=== PATIENT | female | born 1970 | race Caucasian/White ===

== ENCOUNTER 2019-12-17 | Emergency (ER) | payer SELFPAY ==
[2019-12-17] MEDS ORDERED: PROVERA5 MG PO (09:45)
[2019-12-17 10:22] LABS: IMMATURE GRANULOCYTES 0.4 % (0.0-5.0); MEAN CELL VOLUME 70.9 fL CALC (80.0-100.0); MEAN CORPUSCULAR HGB 18.1 pG CALC (26.0-32.0); MEAN CORPUSCULAR HGB CONC 25.5 g/L CALC (32.0-36.0); NEUT# 2.83 thou/uL (2.00-7.15); RED BLOOD COUNT 2.99 mill/uL (4.20-5.60); RED CELL DISTRI WIDTH 19.9 % (11.5-15.5)
[2019-12-17 10:26] LABS: URINE BILIRUBIN - DIPSTICK NEGATIVE (NEGATIVE); URINE BLOOD DIPSTICK MODERATE (NEGATIVE); URINE COLOR YELLOW; URINE GLUCOSE - DIPSTICK NEGATIVE (NEGATIVE); URINE KETONE NEGATIVE (NEGATIVE); URINE LEUK ESTERASE NEGATIVE (NEGATIVE); URINE NITRITE - DIPSTICK NEGATIVE (Negative); URINE PROTEIN - DIPSTICK NEGATIVE (NEG-TRACE); URINE UROBILINOGEN - DIPSTICK 0.2 E.U./dL (0.2)
[2019-12-17 10:38] LABS: URINE SQUAMOUS EPITHELIAL CELL FEW EPI/hpf (0-FEW)
[2019-12-17 10:48] LABS: HEMATOCRIT 21.2 % (37.0-47.0); HEMOGLOBIN 5.4 g/dl (12.0-16.0)
[2019-12-17 11:22] LABS: ANION GAP 13 (6-22 (CALC)); BUN 14 mg/dL (7-17); BUN/CREATININE RATIO 22 (12-20 (CALC)); CARBON DIOXIDE 20 mmol/l (22-30); CHLORIDE 106 mmol/l (95-108); CREATININE 0.7 mg/dL (0.5-1.0); GFR > 60 ML/MIN (>=60 (CALC)); GFR FOR AFR.AMER. > 60 ML/MIN (>=60 (CALC)); POTASSIUM 4.3 mmol/l (3.5-5.1); SODIUM 134 mmol/l (137-146)
[2019-12-17 12:50] VITALS: BP 127/63
[2019-12-17 13:21] VITALS: BP 142/65
[2019-12-17 14:30] VITALS: BP 165/87
[2019-12-17 14:50] VITALS: BP 167/82
== END 2019-12-17 14:59 | disposition short-term general hospital (02) | DRG 760 ==
PROVIDERS: Family Medicine
PROC: 30233N1 Transfusion of Nonautologous Red Blood Cells into Peripheral Vein, Percutaneous Approach (ICD-10-PCS; principal; 2019-12-17)
PROC: 30233N1 Transfusion of Nonautologous Red Blood Cells into Peripheral Vein, Percutaneous Approach (ICD-10-PCS; 2019-12-17)
DX: N93.9 Abnormal uterine and vaginal bleeding, unspecified (principal); D62 Acute posthemorrhagic anemia; N83.9 Noninflammatory disorder of ovary, fallopian tube and broad ligament, unspecified; F17.210 Nicotine dependence, cigarettes, uncomplicated
CPT/HCPCS: P9016

== ENCOUNTER 2021-09-11 13:52 | Emergency (ER) | payer OTHER ==
[~2021-09-11] VITALS: Ht 175.3 cm; Wt 75.0 kg
[~2021-09-11 13:52] MED LIST: PROVERA5 MG PO
[2021-09-11] MEDS ORDERED: VOLTAREN1%GEL TOP (16:07)
[2021-09-11 16:10] VITALS: BP 166/79
== END 2021-09-11 16:10 | disposition home or self-care (01) ==
LOC: ED 13:52
DX: M25.561 Pain in right knee (principal); F17.210 Nicotine dependence, cigarettes, uncomplicated